=== PATIENT | male | born 1980 | race Two or more races ===

== ENCOUNTER → 2016-10-29 | Outpatient (CLI) | payer BC ==
[~2016-10-29] MED LIST: KEFLEX 500MG.500 MG PO; NORCO 325 MG-51 TAB PO
[2016-10-29 12:07] LABS: HEMOGLOBIN 16.6 g/dL (14.1-18.0); LYMPH # 1.7 K/mm3 (0.7-4.5); LYMPH % 34.7 % (10-50)
[2016-10-29 13:25] LABS: BUN 20 mg/dL (7-18)
[2016-10-29 13:31] LABS: GFR (ESTIMATED) 110 ML/MIN (>60)
== END ==
LOC: LAB 11:28
PROVIDERS: Family Medicine
DX: Z83.3 Family history of diabetes mellitus (principal); Z00.00 Encounter for general adult medical examination without abnormal findings

== ENCOUNTER 2017-07-31 17:41 | Emergency (ER) | payer BC ==
[~2017-07-31] VITALS: Ht 182.9 cm; Wt 102.1 kg
[2017-07-31] MEDS ORDERED: KEFLEX 500MG.500 MG PO (18:09)
--- NOTE | 2017-07-31 18:09 | Urgent Treatment Center Report ---
History of Present Issue Date/Time Seen by Provider 07/31/17 1803 Visit Reason Pt arrived:Walked Presenting Problem:PT C/O SORE THROAT FOR THE PAST 8-9 DAYS AND HURTS WITH SWALLOWING Location if Accident: Onset of symptoms date/time:/ or onset unknown for:MEDICAL HX UNKNOWN Have you (or family members/close friends) recently traveled outside the [place]? N If Yes, where/when: Have you had exposure to infectious disease within the past month? TB? Other? Specify: Source patient Exam Limitations no limitations Comment 37-year-old male presents for sore throat with pain with swallowing for 8 or 9 days and seems to be worsening. ALLERGIES Coded Allergies: NO KNOWN ALLERGIES (07/31/17) History Medical History General Angina: No [place]: No Hypertension? No Hyperlipidemia? No CHF? No COPD? No Asthma? No CVA? No Seizures? No Diabetes? No GB Disease: No MRSA? No TB? No Cancer? No Immunization HX DT/Tetanus Has Never Had Surgical Hx Previous Surgery?N Social History Smoking Hx Smoker: Never Smoker Tobacco: No Alcohol Alcohol: No Review of Systems All Other Systems Reviewed and Negative ENT see HPI, throat pain. Physical Exam Vital Signs Vital Signs Date Time Temp Pulse Resp B/P Pulse O2 O2 Flow FiO2 Ox Delivery Rate 07/31 1758 98.4 60 18 129/84 98 - WBC >12,000 or <4,000 or 10% bands? 2 or more SIRS Criteria Met? B/P:129/84 MAP:99 Creatinine >2.0? UA output<0.5ml/kg/hr for 2 hrs? Platelet count >100,000? Lactate >2.0mmol/1? INR >1.2 or PTT > than 60 sec? Evidence of Organ Dysfunction? Provider documented clinical suspician of infection? Sepsis Criteria Count: 0 Sepsis Risk: General Appearance normal appearance, no apparent distress Eye Exam - bilateral eye normal exam, bilateral eye PERRL, bilateral eye EOMI Ear, Nose, Throat hearing grossly normal, pharyngeal erythema, tonsillar exudate Neck full range of motion, lymphadenopathy (L) Respiratory Status Yes: trachea midline, chest symmetrical, non tender chest. No: respiratory distress. Lung Sounds bilateral: normal breath sounds, lungs clear. Cardiovascular normal exam, regular rate/rhythm Neurologic alert, normal exam, oriented x 3 Medical Decision Making LABS/Meds/Orders Pt receiving controlled substance in ED? No Results/Orders Laboratory Tests 07/31/17 1800: Group A Strep Screen NOT DETECTED Orders Procedure Date/time Status [facility] STREP SCREEN 07/31 1756 Complete Departure Departure Time of Disposition 1806 Disposition DC Home or Self Care(routine) Clinical Impression Primary Impression: Sore throat Condition STABLE Referrals Blake STROUD,Willy Sands (Family): 1 Day-Call Office Patient Instructions Sore Throat Additional Instructions Contact precautions discussed with patient Tylenol or ibuprofen as needed for pain Antibiotics as ordered Follow-up primary care this week if no improvement Return or be seen in the ER symptoms worsen or do not improve Discharge Counseling Counseled pt/family regarding diagnosis, test results, medications/RX, home care, follow up needs Prescriptions Current Visit Scripts CEPHALEXIN (Keflex 500MG Capsule) 500 MG PO BID 10 Days at 1834
[2017-07-31 18:40] VITALS: BP 129/84
--- OUTSIDE RECORDS SUMMARY | 2017-08-05 03:13 | External Medical Summary Rpt | CCD ---
Author Author [employer] Organization [employer] Address Unknown Phone Unavailable Purpose Continuity of Care Document - through 2016
--- OUTSIDE RECORDS SUMMARY | 2017-08-05 03:13 | External Medical Summary Rpt | CCD ---
Author Author , ELBA ARREOLA Address Unknown Phone [email or web address] Purpose Continuity of Care Document - through 2016
--- OUTSIDE RECORDS SUMMARY | 2017-08-05 03:13 | External Medical Summary Rpt | CCD ---
Author Author , ELBA ARREOLA Address Unknown Phone [email or web address] Purpose Continuity of Care Document - through 2016
--- OUTSIDE RECORDS SUMMARY | 2017-08-05 03:14 | External Medical Summary Rpt | CCD ---
Author Author , ELBA ARREOLA Address Unknown Phone [email or web address] Immunization Name Date Rout CVX Reac Dose Comm Prov Is Faci e tion ent ider Refu lity Give sed n Infl 11-0 Intr 140 0.5 Hist KHAF No RITE uenz 5-20 amus mL oric SKYLAR AID0 a, 16 cula al AYMA 3938 P-Fr r Info N ee rmat ion - Sour ce Unsp ecif ied
--- OUTSIDE RECORDS SUMMARY | 2017-08-05 03:14 | External Medical Summary Rpt | CCD ---
Author Author , ELBA ARREOLA Address Unknown Phone [email or web address] Immunization Name Date Rout CVX Reac Dose Comm Prov Is Faci e tion ent ider Refu lity Give sed n Infl 11-0 Intr 140 0.5 Hist KHAF No RITE uenz 5-20 amus mL oric SKYLAR AID0 a, 16 cula al AYMA 3938 P-Fr r Info N ee rmat ion - Sour ce Unsp ecif ied
--- OUTSIDE RECORDS SUMMARY | 2017-08-05 03:14 | External Medical Summary Rpt ---
Author Author ELBA Medley, [employer] Organization [employer] Address Unknown Phone Unavailable
== END 2017-07-31 18:40 | disposition home or self-care (01) ==
LOC: UTC 17:41
DX: J02.9 Acute pharyngitis, unspecified (principal)

== ENCOUNTER 2017-08-15 17:36 | Emergency (ER) | payer BC ==
[~2017-08-15] VITALS: Ht 182.9 cm; Wt 99.8 kg
--- OUTSIDE RECORDS SUMMARY | 2017-08-15 17:42 | External Medical Summary Rpt | CCD ---
Author Author , JUSTIN Organization JUSTIN Address Unknown Phone [email or web address] Purpose Continuity of Care Document - 07-31-2017 through 2016 Results Labs Lab Lab Date Result Refere Interp Status Commen Order Detail nces retati t Range on Screening group A Streptococcus antigen (07-31-2017 18:00) Screeni NOT NOTDETE complet ng 0[address] ed group A 18:00 D NOT DETECTE Strepto D L coccus antigen Comment: LOT # NA EXP DATE NA Streptococcus pyogenes Ag [Presence] in Unspecified specimen (07-31-2017 18:00) Strepto NOT NOTDETE complet coccus 0[address] pyogene 18:00 D s Ag [Presen ce] in Unspeci fied specime n
--- OUTSIDE RECORDS SUMMARY | 2017-08-15 17:42 | External Medical Summary Rpt | CCD ---
Author Author , JUSTIN Organization JUSTIN Address Unknown Phone [email or web address] Purpose Continuity of Care Document - 07-31-2017 [...]
--- OUTSIDE RECORDS SUMMARY | 2017-08-15 17:42 | External Medical Summary Rpt ---
Author Author ELBA Medley, [employer] Organization [employer] Address Unknown Phone Unavailable Results Streptococcus pyogenes Ag [Presence] in Unspecified specimen Observa Value Referen Units Interpr Notes Date tion ce etation Range Strepto NOT NOTDETE No No LOT # Jul 31 coccus DETECTE CTED informa informa NA EXP 2016 pyogene D tion in tion in DATE NA 6:00 PM s Ag source source [Presen data data ce] in Unspeci fied specime n
--- OUTSIDE RECORDS SUMMARY | 2017-08-15 17:42 | External Medical Summary Rpt | CCD ---
Author Author , ELBA Organization [employer] Address Unknown Phone [email or web address] Immunization Name Date Rout CVX Reac Dose Comm Prov Is Faci e tion ent ider Refu lity Give sed n Infl 11-0 Intr 140 0.5 Hist KHAF No RITE uenz 5-20 amus mL oric SKYLAR AID0 a, 16 cula al AYMA 3938 P-Fr r Info N ee rmat ion - Sour ce Unsp ecif ied
--- OUTSIDE RECORDS SUMMARY | 2017-08-15 17:42 | External Medical Summary Rpt | CCD ---
Author Author , ELBA Organization [employer] Address Unknown Phone [email or web address] Immunization Name Date Rout CVX Reac Dose Comm Prov Is Faci e tion ent ider Refu lity Give sed n Infl 11-0 Intr 140 0.5 Hist KHAF No RITE uenz 5-20 amus mL oric SKYLAR AID0 a, 16 cula al AYMA 3938 P-Fr r Info N ee rmat ion - Sour ce Unsp ecif ied
--- NOTE | 2017-08-15 18:50 | Urgent Treatment Center Report ---
History of Present Issue Date/Time Seen by Provider 08/15/17 1844 Visit Reason Pt arrived:Walked Presenting Problem:C/O SORE THROAT Location if Accident: Onset of symptoms date/time:/ or onset unknown for:MEDICAL HX UNKNOWN Have you (or family members/close friends) recently traveled outside the [place]? N If Yes, where/when: Have you had exposure to infectious disease within the past month? TB? Other? Specify: Patient state that he has been sick now for several weeks and was seen here and put on antibiotics State that he still has sore throat and not feeling any better States that he came back to see if he needed more antibiotics and see if he could get something for it ALLERGIES Coded Allergies: No Known Allergies (08/15/17) Home Medications Active Scripts CEPHALEXIN (Keflex 500MG Capsule) 500 MG PO BID 10 Days Prov: 07/31/17 History Medical History General CAD? No Angina: No [place]: No Hypertension? No Hyperlipidemia? No CHF? No DVT? No PE? No COPD? No Asthma? No Anemia? No GERD? No Gastric ulcers? No GI Bleed? No Hernia? No Thyroid Problems? No Hypothyroidism? No CVA? No Seizures? No Diabetes? No Renal Insuffiency? No UTI? No Stones? No BPH? No GB Disease: No Nephritic Syndrome? No Asplenia? No Hepatitis? No Sickle Cell Disease? No Arthritis? No Migraines? No Cataracts? No Glaucoma? No MRSA? No HIV? No TB? No Anxiety? No Depression? No Cancer? No More? No Immunization HX DT/Tetanus Has Never Had Surgical Hx Previous Surgery?N Social History Smoking Hx Smoker: Never Smoker Tobacco: No Alcohol Alcohol: No Review of Systems All Other Systems Reviewed and Negative ENT throat pain, throat swelling. Physical Exam Vital Signs Vital Signs Date Time Temp Pulse Resp B/P Pulse O2 O2 Flow FiO2 Ox Delivery Rate 08/15 1836 97.9 62 18 112/79 100 General Appearance normal appearance, WD/WN, no apparent distress Ear, Nose, Throat tonsillar swelling, Throat red, swollen drainage noted, tenderness maxillary sinuses Neck normal inspection, supple, full range of motion Respiratory Status Yes: trachea midline, chest symmetrical, non tender chest. No: respiratory distress. Lung Sounds bilateral: normal breath sounds, lungs clear. Cardiovascular normal exam, regular rate/rhythm Neurologic alert, normal exam, oriented x 3 Medical Decision Making LABS/Meds/Orders Pt receiving controlled substance in ED? No Results/Orders Orders Procedure Date/time Status [facility] STREP SCREEN 08/15 1837 Active Departure Departure Time of Disposition 1899 Disposition DC Home or Self Care(routine) Clinical Impression Primary Impression: Upper respiratory infection Qualifiers: URI type: acute pharyngitis Pharyngitis/tonsillitis etiology: unspecified etiology Qualified Code: J02.9 - Acute pharyngitis, unspecified Condition STABLE Referrals Blake STRUOD,Willy Sands (Family): 2 Days-Call Office Or sooner if no improvement of symptoms Patient Instructions DI for Ear Pain-Adult, Sore Throat Additional Instructions * Monitor Temp. Tylenol and/or Ibuprofen as needed. ER if fever is no less than 101 despite alternating Tylenol and Ibuprofen * Encourage fluids, water, Gatorade, powerade, pedialyte if /toddler/or child * Warm salt water gargles for throat irritation *Warm fluids *Sore throat lozenges *Sleep elevated *humidifier or vaporizer Lots of rest Increase fluids, water, Gatorade, powerade *Flonase 2 sprays each nostril daily but may take 2-3 days to notice improvement with it *Bromfed may cause drowsiness. Know how it effect you or your child. Before driving, caring for small children or sending your child to school *Your throat swab was sent to lab for culture. Those results area typically sent to your primary care physician. Be sure to follow up in 2-3 days if no improvement so they can review those results and treat if necessary If you dont have primary care I recommend you get one, but in the mean time you will have to return to a walk in clinic Follow up IMMEDIATELY for new or worsening of symptoms OR no noticeable improvement over the next 48-72 hours. 911 immediately for any life threatening symptoms such as chest pain or difficulty breathing Discharge Counseling Counseled pt/family regarding diagnosis, test results, medications/RX, home care, follow up needs Prescriptions Current Visit Scripts Amoxicillin Trihydrate (Amoxicillin 500MG) 500 MG PO Q12H #20 CAP D-METHORPHAN HB/P-EPD HCL/BPM (Bromfed Dm Cough Syrup) 10 ML PO Q4HP PRN cough #120 SYR Fluticasone Propionate (Flonase 50 Mcg Nasal [place]) 2 SPRAY NA DAILY #1 BOT Methylprednisolone (Medrol Dose [place]) 4 MG PO UD #1 KENRICK TAKE DIRECTED ON PACKAGING at 1904
[2017-08-15] MEDS ORDERED: FLONASE 50 MCG16 GM (19:03)
[2017-08-15] MEDS ORDERED: AMOXICILLIN 50500 MG PO (19:03)
[2017-08-15] MEDS ORDERED: MEDROL 4MG. DOSE4 MG PO (19:03)
[2017-08-15] MEDS ORDERED: BROMFED DM COU118 ML PO (19:03)
[2017-08-15 19:15] VITALS: BP 112/79
== END 2017-08-15 19:18 | disposition home or self-care (01) ==
LOC: UTC 17:36
DX: J02.9 Acute pharyngitis, unspecified (principal)